=== PATIENT | female | born 1960 | race American Indian/Alaskan Native ===

== ENCOUNTER 2019-04-16 11:32 | Emergency (ER) | payer BC, OTHER ==
[2019-04-16 11:38] VITALS: BP 145/75; PULSE 67
[2019-04-16] MEDS ORDERED: Sodium Chloride 0.9% 10 ML Syringe FLUSH PRN (11:48)
[2019-04-16] MEDS ORDERED: Ketorolac 30 MG/ML SDV IVPUSH ONE (11:48)
[2019-04-16] MEDS ORDERED: Meclizine 12.5 MG Tab PO ONE (11:49)
[2019-04-16] MEDS ORDERED: Ondansetron 4 MG/2 ML SDV IV ONE ×2 (11:49→12:51)
[2019-04-16] MEDS ORDERED: HYDROmorphone 1 MG/ML Syringe IVPUSH ONE (12:50)
--- NOTE | 2019-04-16 13:01 | EDM.PDOC ---
Scribed by Lucy Dawkins 04/16/19 1141 for Hilario Nova MD ED HPI GENERAL MEDICAL PROBLEM - General Chief Complaint: General Stated Complaint: DIZZY Time Seen by Provider: 04/16/19 11:38 Source of Information: Reports: Patient, RN, RN Notes Reviewed History Limitations: Reports: No Limitations - History of Present Illness INITIAL COMMENTS - FREE TEXT/NARRATIVE: Patient presents to ER from work by POV with c/o frontal headache with nausea and "room spin" dizziness. The nausea occurs only with the dizziness. States that she has had the headache for 1 hour and has never had a headache like this in the past. She states that she took Tylenol about 1030HRS. Pt has Hx of migraines, but reports that this is different than her usual headaches. She denies any history of vertigo. Onset: Today Duration: Constant Location: Reports: Head Quality: Reports: Ache Severity: Severe Improves with: Reports: None Worsens with: Reports: None Treatments TROUBLE TRACER: Reports: Acetaminophen Headache Pain Score (Numeric/FACES): 8 - Related Data Allergies Allergy/AdvReac Type Severity Reaction Status Date / Time Penicillins Allergy Intermediate Rash Verified 04/16/19 11:38 Home Meds: Home Meds Aspirin [Asperdrink] 81 mg PO DAILY 08/23/13 [History] Lisinopril [Zestril] 10 mg PO DAILY 08/23/13 [History] glipiZIDE [glipiZIDE XL] 10 mg PO BID 08/23/13 [History] Clopidogrel [Plavix] 75 mg PO DAILY 01/28/14 [History] Simvastatin [Zocor] 20 mg PO BEDTIME 01/28/14 [History] Acetaminophen [Tylenol] 650 mg PO Q6HR PRN 10/04/18 [History] Insulin Glarg,Human.Rec.Analog [Lantus] 20 units INJECT BID 10/04/18 [History] Metoprolol Succinate 25 mg PO DAILY 10/04/18 [History] Nitroglycerin [Nitrostat] 0.4 mg PO ASDIRECTED 10/04/18 [History] Saxagliptin HCl [Onglyza] 2.5 mg PO DAILY 10/04/18 [History] metFORMIN HCl [Glucophage] 1,000 mg PO BIDMEALS 10/04/18 [History] Past Medical History Cardiovascular History: Reports: CAD, High Cholesterol, Hypertension Endocrine/Metabolic History: Reports: Diabetes, Type II, Obesity/BMI 30+ Social & Family History - Family History Family Medical History: Noncontributory - Living Situation & Occupation Living situation: Reports: with Family Occupation: Employed ED ROS GENERAL - Review of Systems Review Of Systems: ROS reveals no pertinent complaints other than HPI. ED EXAM, GENERAL - Physical Exam Exam: See Below Exam Limited By: No Limitations General Appearance: Alert, WD/WN, No Apparent Distress Eye Exam: Bilateral Eye: EOMI, Nystagmus (Left lateral gaze), PERRL Ears: Normal External Exam, Normal Canal, Hearing Grossly Normal, Normal TMs Nose: No Blood, Nasal Drainage (Clear (tearful/crying)) Throat/Mouth: Normal Inspection, Normal Lips, Normal Teeth, Normal Gums, Normal Oropharynx, Normal Voice, No Airway Compromise Head: Atraumatic, Normocephalic Neck: Normal Inspection, Supple, Non-Tender, Full Range of Motion Respiratory/Chest: No Respiratory Distress, Lungs Clear, Normal Breath Sounds, No Accessory Muscle Use, Chest Non-Tender Cardiovascular: Normal Peripheral Pulses, Regular Rate, Rhythm, No Edema, No Gallop, No JVD, No Murmur, No Rub GI/Abdominal: Normal Bowel Sounds, Soft, Non-Tender, No Organomegaly, No Distention, No Abnormal Bruit, No Mass Back Exam: Normal Inspection Extremities: Normal Inspection Neurological: Alert, Oriented, CN II-XII Intact, Normal Cognition, Normal Gait, No Motor/Sensory Deficits Psychiatric: Normal Affect, Normal Mood Skin Exam: Warm, Dry, Intact, Normal Color, No Rash Course - Vital Signs Last Recorded V/S: Last Vital Signs Temp 97.2 F 04/16/19 11:35 Pulse 67 04/16/19 11:35 Resp 20 04/16/19 11:35 BP 145/75 H 04/16/19 11:35 Pulse Ox 95 04/16/19 11:35 - Orders/Labs/Meds Orders: Active Orders 24 hr Category Date Time Status Peripheral IV Care [RC] . DIRECTED Care 04/16/19 11:49 Active Sodium Chloride 0.9% [Saline Flush] Med 04/16/19 11:48 Active 10 ml FLUSH ASDIRECTED PRN Peripheral IV Insertion Adult [OM.PC] Stat Oth 04/16/19 11:48 Ordered Medication Orders Sodium Chloride (Saline Flush) 10 ml FLUSH ASDIRECTED PRN PRN Reason: Keep Vein Open Last Admin: 04/16/19 12:00 Dose: 10 ml Meds: Medications Generic Name Dose Route Start Last Admin Trade Name Freq PRN Reason Stop Dose Admin Sodium Chloride 10 ml 04/16/19 11:48 04/16/19 12:00 Saline Flush FLUSH 10 ml ASDIRECTED PRN Administration Keep Vein Open Discontinued Medications Generic Name Dose Route Start Last Admin Trade Name Freq PRN Reason Stop Dose Admin Hydromorphone HCl 0.5 mg 04/16/19 12:50 Dilaudid IVPUSH 04/16/19 12:51 ONETIME ONE Ketorolac Tromethamine 30 mg 04/16/19 11:48 04/16/19 12:05 Toradol IVPUSH 04/16/19 11:49 30 mg ONETIME ONE Administration Meclizine HCl 25 mg 04/16/19 11:49 04/16/19 12:07 Antivert PO 04/16/19 11:50 25 mg ONETIME ONE Administration Ondansetron HCl 4 mg 04/16/19 11:49 04/16/19 12:01 Zofran IV 04/16/19 11:50 4 mg ONETIME ONE Administration Ondansetron HCl 4 mg 04/16/19 12:51 Zofran IV 04/16/19 12:52 ONETIME ONE Departure - Departure Time of Disposition: 12:59 Disposition: Home, Self-Care 01 Condition: Good Clinical Impression: Vertigo, Frontal headache - Discharge Information *PRESCRIPTION DRUG MONITORING PROGRAM REVIEWED*: No *COPY OF PRESCRIPTION DRUG MONITORING REPORT IN PATIENT TONY: No Instructions: Vertigo, Sinus Headache Forms: ED Department Discharge Additional Instructions: Rx: Meclizine 20mg Rx: Zofran 4mg Follow up in clinic this week for recheck. - My Orders Last 24 Hours: My Active Orders 04/16/19 11:48 Sodium Chloride 0.9% [Saline Flush] 10 ml FLUSH ASDIRECTED PRN Peripheral IV Insertion Adult [OM.PC] Stat 04/16/19 11:49 Peripheral IV Care [RC] . DIRECTED - Assessment/Plan Last 24 Hours: My Active Orders 04/16/19 11:48 Sodium Chloride 0.9% [Saline Flush] 10 ml FLUSH ASDIRECTED PRN Peripheral IV Insertion Adult [OM.PC] Stat 04/16/19 11:49 Peripheral IV Care [RC] . DIRECTED I have read and agree with the documentation that has been completed regarding this visit. By signing this record, I attest that the documentation was completed in my physical presence and is an accurate record of the encounter.
== END 2019-04-16 13:24 | disposition home or self-care (01) ==
LOC: DL.ED 11:32
DX: R42 Dizziness and giddiness (principal); R51 Headache; I25.10 Atherosclerotic heart disease of native coronary artery without angina pectoris; E78.5 Hyperlipidemia, unspecified; I10 Essential (primary) hypertension; E11.9 Type 2 diabetes mellitus without complications; E66.9 Obesity, unspecified; Z68.32 Body mass index [BMI] 32.0-32.9, adult; Z88.0 Allergy status to penicillin; Z79.82 Long term (current) use of aspirin; Z79.01 Long term (current) use of anticoagulants; Z79.4 Long term (current) use of insulin; Z79.899 Other long term (current) drug therapy
CPT/HCPCS: 96374; 96375; 96376; 99283; A9270; J1170; J1885; J2405

== ENCOUNTER 2022-08-03 13:56 | Emergency (ER) | payer BC, OTHER ==
[2022-08-03] MEDS ORDERED: Acetaminophen/oxyCODONE 325-5 MG Tab PO ONE (13:57)
[2022-08-03 15:42] VITALS: BP 130/84; PULSE 79
[2022-08-03] MEDS: Ondansetron 4 MG/2 ML SDV IVPUSH ONE (16:11)
[2022-08-03] MEDS: fentaNYL 100 MCG/2 ML SDV IVPUSH ONE (16:14)
[2022-08-03] MEDS ORDERED: Acetaminophen/oxyCODONE 325-5 MG Tab ONE (17:00)
== END 2022-08-03 17:22 | disposition home or self-care (01) ==
LOC: DL.ED 13:56
DX: S82.031A Displaced transverse fracture of right patella, initial encounter for closed fracture (principal); M25.461 Effusion, right knee; I25.10 Atherosclerotic heart disease of native coronary artery without angina pectoris; E78.00 Pure hypercholesterolemia, unspecified; I10 Essential (primary) hypertension; E11.9 Type 2 diabetes mellitus without complications; E66.9 Obesity, unspecified; Z68.31 Body mass index [BMI] 31.0-31.9, adult; Z88.0 Allergy status to penicillin; Z79.82 Long term (current) use of aspirin; Z79.02 Long term (current) use of antithrombotics/antiplatelets; Z79.4 Long term (current) use of insulin; Z79.01 Long term (current) use of anticoagulants; Z79.899 Other long term (current) drug therapy; W10.9XXA Fall (on) (from) unspecified stairs and steps, initial encounter
CPT/HCPCS: 73564-RT; 96374; 96375; 99283-25; 99284; A9270-GY; J2405; J3010